=== PATIENT | female | born 1970 | race American Indian/Alaskan Native ===

== ENCOUNTER 2021-06-30 20:18 | Emergency (ER) | payer MEDICARE, OTHER ==
[~2021-06-30] VITALS: Ht 162.6 cm; Wt 167.8 kg
[2021-06-30] MEDS ORDERED: CEPH500 PO (21:07)
[2021-06-30] MEDS ORDERED: SULTRIDS PO (21:07)
== END 2021-06-30 21:33 | disposition home or self-care (01) ==
LOC: ER 20:18
DX: S61.34 Puncture wound with foreign body of finger with damage to nail (principal); W22.8XXA Striking against or struck by other objects, initial encounter; I10 Essential (primary) hypertension; Z23 Encounter for immunization
CPT/HCPCS: 73140; 90471; 90714; 96372; 99283-25; A9270; J0690

== ENCOUNTER → 2023-06-04 | Outpatient (CLI) | payer MEDICARE, OTHER ==
[~2023-06-04] MED LIST: CEPH500 PO; SULTRIDS PO
[2023-06-11 22:51] LABS: HPV GENOTYPE 16 Not Detected; HPV GENOTYPE 18 Not Detected; HPV HIGH RISK Not Detected; HPV SOURCE Cervical
== END ==
LOC: LAB 17:00 → LAB SHORT 17:00
PROVIDERS: Physician Assistant
DX: Z01.419 Encounter for gynecological examination (general) (routine) without abnormal findings (principal)
CPT/HCPCS: 87624; G0123

== ENCOUNTER → 2024-01-31 | Outpatient (CLI) | payer MEDICARE, OTHER ==
[~2024-01-31] MED LIST changes: +AMOCLA875 PO; +BUPROPION XL150 M1 PO; +FLUTICASONE-SA1 EA10 INH; +IBU800 M1 PO; +LOPE2C PO; +METFORMIN HCL500 M3 PO; +MONT10T PO; +ONDA4ODT MM; +OXYB5 PO; +PANTOPRAZOLE SO40 M2 PO; +PROAIR DIGIHAL90 MCG INH; +PROC5 PO; +PROM25 PO; +TRAZ50 PO; +[UNRECOGNIZED DRUG - CODE] PO
== END ==
LOC: LAB SHORT 10:30 → LAB 10:30
DX: N10 Acute pyelonephritis (principal); R78.81 Bacteremia; B96.20 Unspecified Escherichia coli [E. coli] as the cause of diseases classified elsewhere
CPT/HCPCS: 87086